=== PATIENT | female | born 1940 | race Caucasian/White ===

== ENCOUNTER → 2017-12-16 | Outpatient (CLI) | payer OTHER ==
[~2017-12-16] MED LIST: ACID REDUCER20 MG PO; ASPIR 8181 MG PO; COUMADIN 3 MG TA3 M1 PO; COUMADIN 3 MG TA3 MG PO; COUMADIN 4 MG TA4 M1; COUMADIN 4 MG TA4 M1 PO; COUMADIN 5 MG TA5 M1 PO; CRESTOR40 MG PO; ENOXAPARIN40 MG/0.1 SUBQ; HYDROCODONE-AP1 EAC6 PO; MECLIZINE HCL12.5 MG PO; METAMUCIL PACK3.4 GM PO; METFORMIN HCL500 MG PO; NEURONTIN 300300 M1 PO; NEXIUM40 MG PO; NORCO 5-325 TA1 EACH PO; OXYCODONE HCL 55 MG PO; PAXIL10 MG PO; PRAMIPEXOLE0.125 MG PO; PRILOSEC 20 MG20 MG PO; TOPICAL CREAM TOP; TRAMADOL 50 MG50 MG PO; TYLENOL325 MG PO
[2017-12-16 12:17] LABS: HEMATOCRIT 35.2 % (37.0-47.0); HEMOGLOBIN 11.3 gm/dL (12.0-15.0); MCH 27.2 pg (26.0-34.0); MCHC 32.2 g/dL (28.0-37.0); MCV 84.4 fL (80.0-100.0); MPV 7.8 fl. (7.2-11.1); RBC 4.17 mil/uL (4.20-5.00); RDW-CV 16.3 % (10.5-14.5); WBC 5.3 thou/uL (4.0-11.0)
== END ==
LOC: M.LAB 11:51
PROVIDERS: Orthopaedic Surgery
DX: M25.562 Pain in left knee (principal)

== ENCOUNTER 2018-01-29 06:28 | Inpatient (IN) | payer OTHER ==
[2018-01-26 12:19] LABS: ABSOLUTE BASOPHILS 0.1 thou/uL (0.0-0.2); ABSOLUTE EOSINOPHILS 0.2 thou/uL (0.0-0.7); ABSOLUTE LYMPHOCYTES 1.3 thou/uL (0.8-5.3); ABSOLUTE MONOCYTES 0.3 thou/uL (0.0-1.2); ABSOLUTE NEUTROPHILS 3.3 thou/uL (1.6-8.1); EOSINOPHILS 4.4 %; HEMATOCRIT 34.5 % (37.0-47.0); HEMOGLOBIN 11.4 gm/dL (12.0-15.0); LYMPHOCYTES 24.9 %; MCH 28.4 pg (26.0-34.0); MCV 86.1 fL (80.0-100.0); MONOCYTES 6.1 %; MPV 7.8 fl. (7.2-11.1); NUCLEATED RBCS 0 /100WBC; PLATELET COUNT* 280 thou/uL (150-400); POLYS 63.6 %; RBC 4.01 mil/uL (4.20-5.00); RDW-CV 17.2 % (10.5-14.5); WBC 5.3 thou/uL (4.0-11.0)
[2018-01-26 12:34] LABS: ALBUMIN 3.6 g/dL (3.4-5.0); CALCIUM 8.7 mg/dL (8.5-10.1); CREATININE 0.7 mg/dL (0.6-1.3); POTASSIUM 3.8 mmol/L (3.5-5.1); TOTAL BILIRUBIN 0.6 mg/dL (<0.1-1.0); TOTAL PROTEIN 7.3 g/dL (6.4-8.2)
[2018-01-27 02:07] LABS: GLYCOHEMOGLOBIN (HGB A1C) 5.6 % (4.8-5.6)
[~2018-01-29] VITALS: Ht 165.1 cm; Wt 63.5 kg
[2018-01-29 07:06] VITALS: BP 137/75
[2018-01-29 07:12] LABS: PROTIME 9.7 Seconds (9.20-11.50)
[2018-01-29 11:30] VITALS: BP 107/50
[2018-01-29 12:00] VITALS: BP 107/50
[2018-01-29 17:15] VITALS: BP 138/62
[2018-01-29 20:00] VITALS: BP 142/71
[2018-01-29 21:15] VITALS: BP 170/78
[2018-01-30 00:27] VITALS: BP 120/67
[2018-01-30 04:00] VITALS: BP 129/63
[2018-01-30 08:30] VITALS: BP 101/55
[2018-01-30 17:55] VITALS: BP 108/52
[2018-01-31 00:10] VITALS: BP 131/72
[2018-01-31 04:00] VITALS: BP 123/65
[2018-01-31 04:35] LABS: HEMATOCRIT 26.4 % (37.0-47.0); HEMOGLOBIN 8.9 gm/dL (12.0-15.0)
[2018-01-31 04:36] LABS: INR 1.3; PROTIME 12.2 Seconds (9.20-11.50)
[2018-01-31 16:00] VITALS: BP 113/71
[2018-01-31 20:30] VITALS: BP 124/67
[2018-02-01 03:30] VITALS: BP 106/58
[2018-02-01 03:51] LABS: INR 1.4; PROTIME 13.3 Seconds (9.20-11.50)
[2018-02-01 07:50] VITALS: BP 118/62
[2018-02-01] MEDS ORDERED: NORCO 5-325 TA1 EACH PO (11:30)
[2018-02-01 11:31] VITALS: BP 118/62
[2018-02-01] MEDS ORDERED: OXYCODONE HCL 55 MG PO (11:31)
[2018-02-01 13:36] VITALS: BP 118/50
[2018-02-01 15:30] VITALS: BP 128/49
[2018-02-01 20:00] VITALS: BP 115/52
[2018-02-02 05:00] VITALS: BP 134/60
[2018-02-02 05:20] LABS: INR 1.7; PROTIME 16.7 Seconds (9.20-11.50)
[2018-02-02 16:50] VITALS: BP 123/50
[2018-02-03 00:38] VITALS: BP 149/65
[2018-02-03 04:26] LABS: INR 2.1; PROTIME 19.9 Seconds (9.20-11.50)
[2018-02-03 04:46] VITALS: BP 108/55
[2018-02-03 08:00] VITALS: BP 149/65
--- NOTE | 2018-02-03 10:04 | OP ---
[address] [address] OPERATIVE REPORT Name: MICHAEL CORCORAN Room: [address] IN M.R.#: [id number] Admission: 01/29/18 Attend Phys: Milan Trevino Discharge: Date of : 40 Report #: [id number] THIS REPORT FOR: //name// CC: Jose Duggan DICTATED BY: Giuseppe Begum DO DATE OF SERVICE: 01/29/2018 PREOPERATIVE DIAGNOSES: Arthrofibrosis, status post right total knee arthroplasty on 07/31/2017 with history of prior manipulation under anesthesia, range of motion roughly 10 degrees to 115 degrees. POSTOPERATIVE DIAGNOSES: 1. Arthrofibrosis, status post right total knee arthroplasty on 07/31/2017 with restricted range of motion from roughly 10 degrees to 115 degrees. 2. Of note, from her frozen section pathology, there were granulomas noted by Dr. Schneider, our pathologist. There were 0 PMNs per high-power field. PROCEDURE: Right knee arthrotomy with intraoperative frozen section, significant adhesiolysis and synovectomy, polyethylene exchange, posterior capsule release, and obtained intra-articular cultures and a formal irrigation with pulsatile lavage. SURGEON: Jim Oshea DO OIL PUMP STATION OPERATOR CHIEF: Giuseppe Begum DO ANESTHESIA: General with a femoral nerve block. ESTIMATED BLOOD LOSS: 100 mL. SPECIMENS REMOVED: Multiple frozen sections intraoperatively that did not display any PMNs per high-power field, but as mentioned previously, did show some areas with granulomas as reported by Dr. Schneider, we also sent off intra-articular cultures which are pending. COMPLICATIONS: None. DRAINS: None. ANTIBIOTICS: Clindamycin 600 mg IV preoperatively. DISPOSITION: Stable to PACU [place] [address] OPERATIVE REPORT Name: MICHAEL CORCORAN Room: [address] IN [facility]#: [id number] Admission: 01/29/18 Attend Phys: Milan Trevino Discharge: Date of : 40 Report #: [id number] postoperative care. INDICATIONS FOR PROCEDURE: The patient is a pleasant 77-year-old female who had an uncomplicated right total knee arthroplasty performed back on 07/31/2017. Since that time, she has continued to have issues with achieving full range of motion. She has good overall flexion roughly at 115-20 degrees, but she is lacking nearly 10 degrees of extension. We did attempt a previous manipulation under anesthesia, which got her some improved range of motion, but she has continued to have issues getting a full extension. She was lacking nearly 10 degrees of extension. She had also continued pain, no significant swelling, but there was some warmth about the knee. There was some concern for possible periprosthetic joint infection. We attempted aspiration multiple times in clinic and were unable to get any significant fluid to send for specimen. We did do a normal lab work on her, which her white count and inflammatory markers were within normal limits. We recommended proceeding with a right knee arthrotomy, possible poly exchange, possible explant and antibiotic spacer insertion. Pending intraoperative pathology frozen sections. All risks, benefits, complications, indications, alternative treatments were discussed and the patient wished to proceed with surgery today. DESCRIPTION OF PROCEDURE: The patient was seen in preoperative holding area correct operative site, right knee was initialed. The patient was taken back to operating suite, placed in supine position on the operating table, given benefit of general anesthetic. A well-padded tourniquet was placed on right upper thigh. Right lower extremity was then prepped and draped in typical fashion. Next surgery began with a timeout, identifying the correct patient, correct procedure, correct operative site, preoperative antibiotics. Next, a standard midline anterior right knee incision was made using 10 blade scalpel directly over the previous surgical scar. Subcutaneous tissues were incised sharply with the same 10 blade scalpel down to the level of the capsule. A new 10 blade scalpel was used to perform our standard medial parapatellar arthrotomy. At this point, there was significant fibrotic scar tissue noted both around the capsule, around the patella and up into the suprapatellar pouch with hypertrophic synovium noted as well. At this point, we performed all of her cultures and took multiple tissue samples of suprapatellar synovium, to be sent for frozen section by pathologist, Dr. Schneider. Next, we performed a thorough debridement of the fibrotic scar tissue and released any adhesions we felt necessary. We placed a Steinmann pin in our patellar tendon just to prevent any sort of insertional tear. Next, we removed our 10 mm polyethylene spacer. We did take cultures from the back of our tibial tray and performed a thorough debridement of any remaining tissue in the back edge of the tibial tray. At this point, we performed a significant posterior release and removed any remaining PCL fibers in the notch. Using a small Reyes elevator, we were able to perform a significant posterior capsular release off the posterior aspect of the femur paying close attention to any surrounding neurovascular structures. We sequentially inserted first a 10 mm followed by 12 mm and then lastly followed [address] [address] OPERATIVE REPORT Name: MICHAEL CORCORAN Room: [address] IN [facility]#: [id number] Admission: 01/29/18 Attend Phys: Milan Trevino Discharge: Date of : 40 Report #: [id number] by 14 mm polyethylene spacer and with her significant posterior capsular release and some manipulation, intraoperatively we were able to get the knee to full extension with a [address]. This was held for roughly 10-15 minutes working on stretching the posterior capsule. By that time, Dr. Schneider, our pathologist had come back in and given the results of our intraoperative frozen sections, which had 0 PMNs per high-power field, but he did note interesting finding of some granulomas in her specimens for which we will need to do a significant workup including a chest x-ray and referral likely to her primary care physician for further workup regarding this finding. Nonetheless, the knee did not show any signs of gross infection. Both the femoral and tibial components appear to be well fixated as well as the patellar component appeared to be well fixated and seemed to be very well intact. At this point, then the 14 mm spacer was removed. Knee was thoroughly irrigated with pulsatile lavage. Then, we impacted our final 10 mm polyethylene spacer. Knee was taken through range of motion. She had full extension easily and had 125 degrees of flexion, felt stable to both varus and valgus stress testing with symmetric gapping as well as within mid flexion stability. Capsule was closed in a rtithy-kt-liakd fashion with a #1 Vicryl suture, followed by 2-0 Monocryl in the subcutaneous tissues in a simple inverted fashion, followed by rex on the skin. Standard dressings were applied consisting of Mepilex, 4 x 4 Sof-Rol and we actually placed a long-leg posterior OCL well-padded splint with the knee in full extension to be maintained for 2-3 days and then likely will remove thereafter and start working on range of motion again. The patient was weaned from general anesthetic, transferred in stable condition to PACU. All sponge, needle counts were correct x 2. <ELECTRONICALLY SIGNED> By: Jim Oshea DO 02/03/18 1004 1047 [id number] Oshea DO /nt
[2018-02-03 16:13] VITALS: BP 133/66
[2018-02-03 19:45] VITALS: BP 131/57
[2018-02-04 14:27] VITALS: BP 118/62
[2018-02-04 18:27] VITALS: BP 118/62
--- NOTE | 2018-02-09 15:21 | CON ---
[facility] [address] [place] [address] CONSULTATION Name: MICHAEL CORCORAN Room: [address] IN .R.#: [id number] Admission: 01/29/18 Attend Phys: Milan Trevino Discharge: 02/04/18 Date of : 40 Report #: [id number] THIS REPORT FOR: //name// CC: Jose Duggan REASON FOR CONSULTATION: Evaluation and recommendations regarding post-acute rehabilitation in a 77-year-old female admitted acutely for failed right total knee arthroplasty with poly exchange, posterior capsule release and removal of adhesions. She also has a concurrent history of lupus, diabetes, atrial fibrillation, hyperlipidemia and GERD. She was previously independent to modified independent with activities of daily living. She does have multiple DME including shower riser, cane, walker. She has cognitive deficits noted. She is also minimum to maximum assistance with occupational therapies and contact guard to minimum assistance with physical therapies. She lives at home with her who is getting ready to have heart stent placed next week and is unable to care for her. She does have 13 steps to her bedroom. She has not attempted steps during this hospital stay yet. ALLERGIES: PENICILLIN. LABORATORIES AND MEDICATIONS: Reviewed. 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 FAMILY HISTORY: Heart disease. SOCIAL HISTORY: No tobacco, alcohol or illicit drug use. REVIEW OF SYSTEMS: A 14-point review of systems is done and is negative except as mentioned in the HPI, specifically no fever, chest pain, shortness of breath, abdominal pain or distention. PHYSICAL EXAMINATION: GENERAL: Alert, oriented, in no apparent distress. VITAL SIGNS: Reviewed and are stable. HEENT: Head is atraumatic and normocephalic. Pupils are equal, round and reactive. ABDOMEN: Soft, nontender and nondistended. NEUROLOGIC: Cranial nerves 2-12 are grossly intact with no focal neuro deficits. PSYCHIATRIC: Appropriate mood and affect. SKIN: [place] [address] CONSULTATION Name: NARAYANMICHAEL VILLAFUERTE Moises Room: [address]#: [id number] Admission: 01/29/18 Attend Phys: Milan Trevino Discharge: 02/04/18 Date of : 40 Report #: [id number] ASSESSMENT: 1. Failed right total knee arthroplasty, status post DAVIDA, poly exchange and posterior capsule release. 2. Lupus. 3. GERD, diabetes, hyperlipidemia and hypothyroid. 4. Atrial fibrillation with hypercoagulable state. PLAN: 1. Recommend admission to inpatient rehabilitation to facilitate safe discharge home. 2. Continue with PT and OT. 3. Document speech language pathology with cognitive deficits. 4. We will follow while on acute side of the hospital. <ELECTRONICALLY SIGNED> By: Dilia Goldberg DO 02/09/18 1521 [id number] [id number] Goldberg DO /nt
--- NOTE | 2018-06-01 15:19 | PATH ---
[address] [address] PATHOLOGY RPT PROCEDURE Name: MICHAELA CORCORAN Room: [address] IN .R.#: [id number] Admission: 01/29/18 Date of : 40 Discharge: 02/04/18 Report #: [id number] Path Case #: [id number] [facility] Accession Number: [id number] . 01 Material submitted: . RIGHT KNEE TISSUE FOR FROZEN SECTION FOR WHITE CELLS UNDER HPF . 02 Diagnosis: Right knee tissue: - Benign skeletal muscle and fibrofatty tissues and moderate non-caseating granulomatous and chronic synovitis, with less than two neutrophils per high power field on average. See comment. LBQ/02/02/2018 . 02 Comment: No birefringent foreign material is seen in association with the granulomata and the histologic features suggest the possibility of an infectious cause or sarcoidosis. Properly controlled GMS and Kinyoun stains performed on A3 are negative although infectious causes are best excluded with cultures. (JORDYN:db; 02/02/2018) . Copy to Dr. Brenton Duggan . 02 Electronically signed: . Cecil Schneider MD, Pathologist NPI- [id number] . 01 Gross description: . Received fresh from the operating room accompanied by a label marked "Michaela Corcoran, frozen right knee" are two pieces of more to yellow to partially hemorrhagic soft tissues with aggregate greatest dimensions of 5.0 x 3[address] Oshea requests evaluation for the presence of neutrophils and possible infection. One of the segments has a smooth bansal, membranous lining. Touch preps are prepared and apparel trimmings sales representative sections are taken from both segments and submitted for frozen studies with the remainder of that tissue frozen submitted in cassette A1. The remaining tissues are submitted for formalin fixation prior to further examination. (JORDYN:db; 01/29/2018) . Received are five fragments of more-bansal rubbery soft tissue partially covered by a more-white membrane ranging from 1.7 up to 2.4 cm in greatest dimension and measuring 3.0 x 2.5 x 1.5 cm in aggregate. Additional sections are submitted in A2-A3. (SWS; 01/29/2018) . Frozen Section Diagnosis With Touch Prep: [place] [address] PATHOLOGY RPT PROCEDURE Name: MICHAELA CORCORAN Room: [address] IN [facility].#: [id number] Admission: 01/29/18 Date of : 40 Discharge: 02/04/18 Report #: [id number] Path Case #: [id number] (Gunnar Schneider M.D.) . FSA1/TPA1. Right knee: - Noncaseating granulomatous synovitis with less than 5 neutrophils per high power field on average. Possible sarcoidosis. Recommend cultures to include fungus and mycobacteria/acid fast organisms. . Results are relayed directly to Dr. Oshea in the operating room and a note entered into the medical record. . Frozen section and touch prep performed at [facility], [address], [place] [address]. [facility] . 02 CPT . 293614, 185935, 740326, 600623, [id number] Specimen Comment: A duplicate report has been generated due to demographic updates. Performed at: 01 [facility] [id number] [facility] [address], [place], [place] [id number] MD Bc Skinner MD Phone: [phone] Performed at: 02 [facility] [address], [place], [place] [id number] MD Cecil Schneider MD Phone: [phone]
== END 2018-02-04 16:00 | disposition home health service (06) | DRG 488 ==
LOC: M.TBA 06:28 → M.SUR 07:37 → EDSTATUS 07:38 → M.PRE 08:00 → M.ORTHSURG 11:45 → M.PRE 12:24 → M.ORTHSURG 02-04 16:00
PROVIDERS: Internal Medicine; Orthopaedic Surgery; ADMIT Internal Medicine
PROC: 0SBC0ZZ Excision of Right Knee Joint, Open Approach (ICD-10-PCS; principal; 2018-01-29)
DX: T84.092A Other mechanical complication of internal right knee prosthesis, initial encounter (principal); D68.59 Other primary thrombophilia; M19.90 Unspecified osteoarthritis, unspecified site; E11.9 Type 2 diabetes mellitus without complications; E78.5 Hyperlipidemia, unspecified; I48.2 Chronic atrial fibrillation; Z96.651 Presence of right artificial knee joint; K21.9 Gastro-esophageal reflux disease without esophagitis; M32.9 Systemic lupus erythematosus, unspecified; M24.661 Ankylosis, right knee; E03.9 Hypothyroidism, unspecified; Z82.49 Family history of ischemic heart disease and other diseases of the circulatory system; Z79.82 Long term (current) use of aspirin; Z79.899 Other long term (current) drug therapy; Z88.0 Allergy status to penicillin; Z90.49 Acquired absence of other specified parts of digestive tract; Z86.73 Personal history of transient ischemic attack (TIA), and cerebral infarction without residual deficits; Z98.42 Cataract extraction status, left eye; Z98.41 Cataract extraction status, right eye

== ENCOUNTER → 2018-06-04 | Outpatient (CLI) | payer OTHER ==
[2018-06-04 12:50] LABS: BF RBC 265121 /mm3; CLARITY CLOUDY; COLOR RED; TOTAL CELL COUNT 383 /mm3; TOTAL VOLUME 5 ml
[2018-06-04 14:57] LABS: BF EOSINOPHILS 10 %; BF LYMPHOCYTES 51 %; BF MONOCYTES 2 %; BF POLYS 37 %
[2018-06-05 09:07] LABS: BODY FLUID PROTEIN 2.4 g/dL (())
[2018-06-05 18:24] LABS: SOURCE ASCITES
[2018-06-06 11:00] LABS: SOURCE R KNEE SYNOVIAL
--- NOTE | 2018-06-07 17:08 | PATH ---
[address] [address] PATHOLOGY RPT PROCEDURE Name: MICHAEL CORCORAN Room: [facility] [place]#: [id number] Admission: 06/04/18 Date of : 40 Discharge: Report #: [id number] Path Case #: [id number] Note [facility] Accession Number: [id number] TESTS RESULT FLAG UNITS REF RANGE LAB Clinician Provided Cytology Information No. of containers..01 Other (Miscellaneous) Source: R KNEE SYNOVIAL FLUI DIAGNOSIS: R KNEE SYNOVIAL FLUI NEGATIVE FOR MALIGNANT CELLS. ABUNDANT BLOOD WITH FEW MONONUCLEAR CELLS. PROTEINACEOUS MATERIAL IS PRESENT. Signed out by: 02 Cecil Schneider MD, Pathologist NPI- [id number] Performed by: Jose Padilla, Leveling Machine Operator ([facility]) Gross description: 01 2.5ML, RED, CLOUDY /LCS FLAG LEGEND: L-Low Normal,H-High Normal,LL-Alert Low,HH-Alert High <-Panic Low,>-Panic High,A-Abnormal,AA-Critical Abnormal Performed at: [address] [place] [address] Bc Skinner MD, [address] [place] [address] [address] [facility], [place] [address] Cecil Schneider MD, Performed at: [address], [place], [place] [id number] MD Bc Skinner MD Phone: [phone]
== END ==
LOC: M.LAB 11:27
PROVIDERS: Orthopaedic Surgery
DX: M25.461 Effusion, right knee (principal)

== ENCOUNTER 2018-11-12 12:29 | Inpatient (IN) | payer OTHER ==
[~2018-11-12] VITALS: Ht 165.1 cm; Wt 59.9 kg
--- NOTE | ~2018-11-12 | H ---
[address] [address] HISTORY AND PHYSICAL Name: MICHAEL CORCORAN Room: [address]#: [id number] Admission: 11/12/18 Attend Phys: Kurt Nash MD Discharge: 11/12/18 Date of : 40 Report #: [id number] THIS REPORT FOR: //name// Patient was here less than 24 hour please refer to the Emergency room summary note. Patient left AMA. By: 1122Medical Records Staff FINN /LEONARDO
--- NOTE | ~2018-11-12 | CON ---
[address] [address] CONSULTATION Name: JOE CORCORANLOTEVA De Leon Room: [address] IN [place]irela.#: [id number] Admission: 11/12/18 Attend Phys: Kurt Nash MD Discharge: Date of : 40 Report #: [id number] THIS REPORT FOR: //name// CC: Jose Hopkins DATE OF SERVICE: 11/12/2018 TYPE OF REPORT: Cardiology consultation. HISTORY OF PRESENT ILLNESS: The patient is a 77-year-old white female who I was asked to see in the Emergency Room today after she complained of epigastric pain. The patient has a long history of paroxysmal atrial fibrillation. She has been followed by my partner, Dr. Hopkins. She apparently has never been cardioverted. She has been chronically anticoagulated. Previous heart catheterization years ago at [facility] showed no significant coronary artery disease and no intervention was performed. She states that recently she has had epigastric pain. It is a constant pain. It radiates around to her back. It is not related to meals or exertion. She has had no appetite. Denies any shortness of breath. She has occasional palpitations but no syncope. Because the epigastric pain, she actually went to [facility] a week ago. She was admitted there for 6 days. She underwent extensive evaluation including nuclear stress test, EGD and CAT scan. The cause of her chest pain was never elucidated. She was just discharged yesterday. She called my office this morning and complained of the epigastric pain. She was told to go to the hospital for further evaluation and treatment. She has had no vomiting or diarrhea. PAST MEDICAL HISTORY: Significant for cholecystectomy, hysterectomy, knee surgery and diabetes. MEDICATIONS: Include metformin, warfarin and Lipitor. ALLERGIES: She has an allergy to PENICILLIN. FAMILY HISTORY: Her mother had bypass surgery. SOCIAL HISTORY: She is . She lives with her in [place]. She quit smoking years ago. No alcohol abuse. REVIEW OF SYSTEMS: She apparently had a stroke years ago with some speech difficulties. She has no history of asthma. No history of GI bleeding. No history of kidney disease, cancer, psychiatric illness or [place] [address] CONSULTATION Name: MICHAEL CORCORAN Room: [address]#: [id number] Admission: 11/12/18 Attend Phys: Kurt Nash MD Discharge: Date of : 40 Report #: [id number] PHYSICAL EXAMINATION: GENERAL: Revealed an elderly female who appeared in no acute distress. VITAL SIGNS: Showed blood pressure 120/80, pulse is 90 and she is afebrile. HEENT: She was anicteric. Conjunctivae pink. Mucous members are moist. NECK: Veins do not appear distended. No carotid bruits. Neck supple. CHEST: Clear to auscultation. CARDIAC: Regular rate and rhythm without rub. ABDOMEN: Soft. EXTREMITIES: Had no edema. SKIN: Warm and dry. NEUROLOGICAL: Nonfocal. LYMPHATIC: No adenopathy. MUSCULOSKELETAL: No joint effusion. RADIOLOGICAL DATA: Her ECG had a significant amount of artifact but had no significant ST or T-wave changes. Her workup in the Emergency Room today, she had portable chest x-ray that showed normal heart size, some atelectasis, otherwise unremarkable. LABORATORY DATA: Sodium 139, potassium 3.7 and creatinine 0.9. Troponin 0.06. Her white blood cell count 5.1 and hemoglobin 11.3. IMPRESSION AND RECOMMENDATIONS: 1. Epigastric pain. Doubt cardiac. I would attempt to obtain all the records from [facility] where she was admitted a week ago and hospitalized for 6 days with an extensive evaluation. 2. History of atrial fibrillation. The patient has been chronically anticoagulated. Her INR today, however, is only 1.2. 3. Diabetes. 4. Hyperlipidemia. The patient is on a statin drug. 5. Previous stroke. The patient has been chronically anticoagulated. By: 1510 [id number] Sabillon MD, FACC /nt
[2018-11-12 12:40] VITALS: BP 140/80
[2018-11-12] MEDS ORDERED: LIPITOR80 MG PO (12:56)
[2018-11-12] MEDS ORDERED: VITAMIN D2000 UNIT PO (12:56)
[2018-11-12] MEDS ORDERED: ENOXAPARIN100 MG/11 SUBQ (12:56)
[2018-11-12] MEDS ORDERED: MIRAPEX 0.250.25 M1 PO (12:57)
[2018-11-12] MEDS ORDERED: SYNTHROID100 MC1 PO (12:57)
[2018-11-12 13:08] LABS: ABSOLUTE BASOPHILS 0.1 thou/uL (0.0-0.2); ABSOLUTE EOSINOPHILS 0.2 thou/uL (0.0-0.7); ABSOLUTE MONOCYTES 0.5 thou/uL (0.0-1.2); ABSOLUTE NEUTROPHILS 3.2 thou/uL (1.6-8.1); BASOPHILS 1.1 %; EOSINOPHILS 3.9 %; HEMATOCRIT 33.9 % (37.0-47.0); HEMOGLOBIN 11.3 gm/dL (12.0-15.0); LYMPHOCYTES 20.6 %; MCH 28.6 pg (26.0-34.0); MCHC 33.2 g/dL (28.0-37.0); MCV 86.1 fL (80.0-100.0); MONOCYTES 10.4 %; MPV 7.5 fl. (7.2-11.1); NUCLEATED RBCS 0 /100WBC; PLATELET COUNT* 290 thou/uL (150-400); RBC 3.94 mil/uL (4.20-5.00); RDW-CV 16.2 % (10.5-14.5); WBC 5.1 thou/uL (4.0-11.0)
[2018-11-12 13:14] LABS: APTT 32.7 Seconds (25.0-31.3); INR 1.2; PROTIME 12.7 Seconds (9.20-11.50)
[2018-11-12 13:23] LABS: ANION GAP 9 mmol/L (7-16); BUN 15 mg/dL (7-18); CALCIUM 9.1 mg/dL (8.5-10.1); CHLORIDE 101 mmol/L (98-107); CO2 29 mmol/L (21-32); CREATININE 0.9 mg/dL (0.6-1.3); GLUCOSE 134 mg/dL (70-99); POTASSIUM 3.7 mmol/L (3.5-5.1); SODIUM 139 mmol/L (136-145); TROPONIN-I LEVEL <0.06 ng/mL (<0.06)
[2018-11-12 13:24] LABS: ALBUMIN 3.4 g/dL (3.4-5.0); ALKALINE PHOSPHATASE 82 U/L (46-116); LIPASE 113 U/L (73-393); MAGNESIUM 1.8 mg/dL (1.8-2.4); NT-PRO BRAIN NAT PEPTIDE 123 pg/mL (<300); SGOT 33 U/L (15-37); SGPT 25 U/L (30-65); TOTAL BILIRUBIN 0.4 mg/dL (<0.1-1.0); TOTAL PROTEIN 7.4 g/dL (6.4-8.2)
--- NOTE | 2018-11-12 15:47 | EKG ---
[place] [address] ELECTROCARDIOGRAM REPORT Name: MICHAEL CORCORAN Room: [place] [address] ADM IN [facility].#: [id number] Admission: 11/12/18 Attend Phys: Kurt Nash MD Discharge: Date of : 40 Report #: [id number] THIS REPORT FOR: //name// [facility] ED Test Date: 2018-11-12 Test Time: 13:17:21 Pat Name: MICHAEL CORCORAN Department: Room: [facility] Gender: F Case Managers: MADDY : 1940 Requested By: Killian Mares Order Number: [id number] MD: Daniel Sabillon Measurements Intervals [place] Rate: 92 P: 47 MD: 142 QRS: 37 QRSD: 82 T: 38 QT: 331 QTc: 410 Interpretive Statements Sinus rhythm Artifact in lead(s) I,II,III,aVR,aVL,aVF,V1,V2,V3,V4 and baseline wander in lead (s) V1 Compared to ECG 07/23/2017 09:14:30 No significant changes Electronically Signed On 11-12-2018 15:47:19 MIXING TUMBLER OPERATOR by Daniel Sabillon [email or web address] <ELECTRONICALLY SIGNED> By: Daniel Sabillon MD, FACC 11/12/18 1547 1317 1317 Daniel Sabillon MD, [facility] /EPI
[2018-11-12 17:44] VITALS: BP 133/70
--- NOTE | 2018-11-12 17:44 | NUR ---
PT REPORTS SHE DOES NOT WANT TO GO HOME BECAUSE SHE WAS JUST ADMITTED AT [facility] FOR 6 DAYS. PARTIAL AMA FORM SIGNED.
== END 2018-11-12 17:45 | disposition left against medical advice (07) | DRG 392 ==
LOC: M.ERS 12:29 → M.TBA-ER 14:09
PROVIDERS: Emergency Medicine Emergency Medical Services; ADMIT Internal Medicine
DX: R10.13 Epigastric pain (principal); E11.9 Type 2 diabetes mellitus without complications; I10 Essential (primary) hypertension; E78.5 Hyperlipidemia, unspecified; M19.90 Unspecified osteoarthritis, unspecified site; K21.9 Gastro-esophageal reflux disease without esophagitis; Z53.21 Procedure and treatment not carried out due to patient leaving prior to being seen by health care provider; I48.0 Paroxysmal atrial fibrillation; Z90.49 Acquired absence of other specified parts of digestive tract; Z98.42 Cataract extraction status, left eye; Z98.41 Cataract extraction status, right eye; Z88.0 Allergy status to penicillin; Z79.01 Long term (current) use of anticoagulants; Z90.710 Acquired absence of both cervix and uterus; Z79.899 Other long term (current) drug therapy

== ENCOUNTER 2020-03-12 19:26 | Observation (INO) | payer OTHER ==
[~2020-03-12] VITALS: Ht 165.1 cm; Wt 64.8 kg
--- NOTE | ~2020-03-12 | CON ---
[address] [address] CONSULTATION Name: MICHAEL CORCORAN Room: [address] Mar[place] Rowland#: [id number] Admission: 03/12/20 Attend Phys: Angela Walker Discharge: 03/14/20 Date of : 40 Report #: [id number] THIS REPORT FOR: //name// cc: Jose Esparza Aaron DO ~ THIS REPORT FOR: //name// CC: Jose Velasquez Tilarenita DATE OF SERVICE: 03/14/2020 HISTORY OF PRESENT ILLNESS: This is a 79-year-old female patient who was discussed with nurses multiple times. She was evaluated by me for acute onset of headache. Because of that, the patient underwent a CT scan of the head, which showed no acute process. Then, she had an MRI of the brain and MRA of the [place] of [place]. That also showed no acute process. She says she usually follows up with Dr. Arredondo for her neurological problem. She said she had some mini strokes in the past, but history is not very clear. REVIEW OF SYSTEMS: Positive for some epigastric pain. She has been tired. She does have a history of anxiety. She says she has a question of restless leg syndrome. She is on chronic anticoagulation. She has seen multiple consultants including Cardiology. She has a history of paroxysmal atrial fibrillation. Headache was mostly resolved when I saw this patient. I did not see any imaging of the carotid vessels, but she has no symptoms referable to that. She said Dr. Arredondo has done all those testing. That was a relevant 14-point review of systems. PAST MEDICAL HISTORY: Positive for "mini stroke." FAMILY HISTORY: Unremarkable. SOCIAL HISTORY: Also unremarkable. She does not drink alcohol. PHYSICAL EXAMINATION: Indicates she is alert. She is responsive. She appeared anxious. Cranial nerve examination and neuromuscular examination was mostly unremarkable. Blood pressure is 144/65, respirations 16, pulse is 97, temperature is 97.4. LABORATORY DATA: White count is 5.6. Imaging study was reviewed and is summarized as above. IMPRESSION: This patient complained of a headache, but the workup was unremarkable. I do [place] [address] CONSULTATION Name: NARAYANMICHAEL VILLAFUERTE Moises Room: [address] Maricel Rowland#: [id number] Admission: 03/12/20 Attend Phys: Angela lee [facility] Discharge: 03/14/20 Date of : 40 Report #: [id number] perspective at the moment. She probably have the imaging studies of the carotid, but she can check with Dr. Arredondo. She is already on anticoagulation and there are no symptoms referable to any of the carotid. I discussed all of these with the patient and she does indicate that she will talk to Dr. Ahmed about the further management. Thank you very much for this referral. About 50 minutes of time was spent taking care of this patient and majority of that time was spent counseling and coordinating. By: 1818 [id number] Masters MD /nt
[~2020-03-12 19:26] MED LIST changes: +ENOXAPARIN100 MG/11 SUBQ; +LIPITOR80 MG PO; +MIRAPEX 0.250.25 M1 PO; +SYNTHROID100 MC1 PO; +VITAMIN D2000 UNIT PO
[2020-03-12 19:36] VITALS: BP 148/80
[2020-03-12 19:53] LABS: ABSOLUTE BASOPHILS 0.1 thou/uL (0.0-0.2); ABSOLUTE EOSINOPHILS 0.4 thou/uL (0.0-0.7); ABSOLUTE LYMPHOCYTES 1.8 thou/uL (0.8-5.3); ABSOLUTE MONOCYTES 0.7 thou/uL (0.0-1.2); ABSOLUTE NEUTROPHILS 3.8 thou/uL (1.6-8.1); BASOPHILS 1.2 %; EOSINOPHILS 6.5 %; HEMATOCRIT 34.7 % (37.0-47.0); HEMOGLOBIN 11.6 gm/dL (12.0-15.0); LYMPHOCYTES 26.4 %; MCH 29.3 pg (26.0-34.0); MCHC 33.4 g/dL (28.0-37.0); MCV 87.6 fL (80.0-100.0); MONOCYTES 10.5 %; MPV 8.5 fl. (7.2-11.1); NUCLEATED RBCS 0 /100WBC; PLATELET COUNT* 252 thou/uL (150-400); POLYS 55.4 %; RBC 3.96 mil/uL (4.20-5.00); RDW-CV 15.8 % (10.5-14.5); WBC 6.9 thou/uL (4.0-11.0)
[2020-03-12 20:07] LABS: CALCIUM 8.5 mg/dL (8.5-10.1); CREATININE 0.7 mg/dL (0.6-1.3)
[2020-03-12 20:09] LABS: APTT 33.6 Seconds (25.0-31.3); INR 1.9
[2020-03-12] MEDS ORDERED: REQUIP 0.25 M0.25 M1 (20:11)
[2020-03-12] MEDS ORDERED: MACROBID 100 M100 MG (20:11)
[2020-03-12] MEDS ORDERED: COUMADIN6 MG PO (20:12)
[2020-03-12] MEDS ORDERED: LEVO-T50 MCG PO (20:13)
[2020-03-12 20:20] LABS: ALBUMIN 3.6 g/dL (3.4-5.0); TOTAL BILIRUBIN 0.3 mg/dL (<0.1-1.0); TOTAL PROTEIN 7.5 g/dL (6.4-8.2)
[2020-03-12 22:30] VITALS: BP 153/78
[2020-03-12 23:15] VITALS: BP 156/85
[2020-03-13 03:39] VITALS: BP 142/77
[2020-03-13 05:40] LABS: CHOLESTEROL 143 mg/dL (<200); HDL CHOLESTEROL 71 mg/dL (>40); LDL CHOLESTEROL 61 mg/dL (<100); TRIGLYCERIDE 57 mg/dL (<150); VLDL 11 mg/dL (<40)
[2020-03-13 05:42] LABS: SERUM ASSESSMENT Clear
[2020-03-13 08:00] VITALS: BP 138/78
--- NOTE | 2020-03-13 09:07 | EKG ---
[place] [address] ELECTROCARDIOGRAM REPORT Name: MICHAEL CORCORAN Room: [address] M.#: [id number] Admission: 03/12/20 Attend Phys: Angela lee Sa Discharge: Date of : 40 Date of Service: 03/12/201930 Report #: [id number] THIS REPORT FOR: //name// [facility] ED Test Date: 2020-03-12 Test Time: 19:31:11 Pat Name: MICHAEL CORCORAN Department: Room: [facility] Gender: F Mobile Homes Repairer: [place] : 1940 Requested By: Angelica Chong Order Number: [id number] MD: Arya Simpson Measurements Intervals [place] Rate: 89 P: 26 CO: 132 QRS: 38 QRSD: 89 T: 30 QT: 344 QTc: 419 Interpretive Statements Sinus rhythm Compared to ECG 11/12/2018 13:17:21 No significant changes Electronically Signed On 03-13-2020 9:06:59 CDT by Arya Simpson [email or web address] <ELECTRONICALLY SIGNED> By: Arya Simpson MD, FACC 03/13/2006 30 30 Arya Simpson MD, FAC /EPI
[2020-03-13 12:22] VITALS: BP 128/72
--- NOTE | 2020-03-13 12:26 | 2DMMODE ---
[place] [address] 2 D/M-MODE ECHOCARDIOGRAM Name: MICHAEL CORCORAN Room: [address] Maricel Rowland#: [id number] Admission: 03/12/20 Attend Phys: Angela lee Sa Discharge: Date of : 40 Date of Service: 03/13/20 1225 Report #: [id number] THIS REPORT FOR: cc: Jose Esparza,Jose Bronson,Arya Mazariegos MD [facility] ~ APPROVED REPORT Study performed: 03/13/2020 09:19:13 EXAM: Comprehensive 2D, Doppler, and color-flow Echocardiogram Patient Location: In-Patient BSA: 1.71 HR: 71 bpm BP: 142/77 mmHg Other Information Study Quality: Fair Indications Chest Pain 2D Dimensions IVSd: 13.25 (7-11mm) LVOT Diam: 17.93 (18-24mm) LVDd: 35.08 mm PWd: 13.58 (7-11mm) Ascending Ao: 26.02 (22-36mm) LVDs: 28.09 (25-40mm) Aortic Root: 36.86 mm Volumes Left Atrial Volume (Systole) LA ESV Index: 21.10 mL/m2 Aortic Valve AoV Peak Andres.: 0.87 m/s AO Peak Gr.: 3.02 mmHg LVOT Max P.08 mmHg AO Mean Gr.: 1.92 mmHg LVOT Mean P.46 mmHg LVOT Max V: 0.88 m/s AO V2 VTI: 22.75 cm LVOT Mean V: 0.55 m/s MARIA TERESA (VTI): 2.64 cm2 LVOT V1 VTI: 23.82 cm Mitral Valve E/A Ratio: 0.53 [place] [address] 2 D/M-MODE ECHOCARDIOGRAM Name: MICHAEL CORCORAN [address]: [address]#: [id number] Admission: 03/12/20 Attend Phys: Angela lee Sa Discharge: Date of : 40 Date of Service: 03/13/20 1225 Report #: [id number] MV Decel. Time: 263.14 ms MV E Max Andres.: 0.35 m/s MV PHT: 76.31 ms MVA (PHT): 2.88 cm2 TDI E/Lateral E': 5.83 E/Medial E': 4.38 Medial E' Andres.: 0.08 m/s Lateral E' Andres.: 0.06 m/s Pulmonary Valve PV Peak Andres.: 0.80 m/s PV Peak Gr.: 2.56 mmHg Tricuspid Valve RAP Estimate: 5.00 mmHg TR Peak Gr.: 18.09 mmHg RVSP: 23.09 mmHg PA Pressure: 23.09 mmHg Left Ventricle The left ventricle is normal size. There is normal LV segmental wall motion. Mild concentric left ventricular hypertrophy. Left ventricular systolic function is normal. LVEF is >70%. Grade I - abnormal relaxation pattern. Right Ventricle The right ventricle is normal size. The right ventricular systolic function is normal. Atria The left atrium size is normal. The right atrium size is normal. Aortic Valve The aortic valve is normal in structure. No aortic regurgitation is present. There is no aortic valvular stenosis. Mitral Valve The mitral valve is normal in structure. Trace mitral regurgitation. No evidence of mitral valve stenosis. Tricuspid Valve The tricuspid valve is normal in structure. Trace tricuspid regurgitation. Pulmonic Valve The pulmonary valve is normal in structure. There [place] [address] 2 D/M-MODE ECHOCARDIOGRAM Name: MICHAEL CORCORAN Room: [address] [id number] Admission: 03/12/20 Attend Phys: Angela lee Sa Discharge: Date of : 40 Date of Service: 03/13/20 1225 Report #: [id number] valvular regurgitation. Great Vessels The aortic root is normal in size. IVC is normal in size and collapses >50% with inspiration. Pericardium There is no pericardial effusion. <Conclusion> The left ventricle is normal size. Mild concentric left ventricular hypertrophy. Left ventricular systolic function is normal. LVEF is >70%. Grade I - abnormal relaxation pattern. Trace mitral regurgitation. Trace tricuspid regurgitation. IVC is normal in size and collapses >50% with inspiration. <ELECTRONICALLY SIGNED> By: Arya Simpson MD, FACC 03/13/20 1225 1225 1225 Arya Simpson MD, FACC /INF
[2020-03-13 16:29] VITALS: BP 130/70
[2020-03-13 20:10] VITALS: BP 137/74
[2020-03-14] VITALS: BP 145/60
[2020-03-14 02:06] LABS: GLYCOHEMOGLOBIN (HGB A1C) 6.1 % (4.8-5.6)
[2020-03-14 03:43] VITALS: BP 137/75
[2020-03-14 06:11] LABS: PROTIME 19.6 Seconds (9.20-11.50)
[2020-03-14 08:00] VITALS: BP 152/72
[2020-03-14 10:31] LABS: HEMATOCRIT 36.6 % (37.0-47.0); HEMOGLOBIN 12.1 gm/dL (12.0-15.0); MCH 29.1 pg (26.0-34.0); MCV 88.2 fL (80.0-100.0); MPV 8.5 fl. (7.2-11.1); RBC 4.15 mil/uL (4.20-5.00); RDW-CV 15.6 % (10.5-14.5); WBC 5.6 thou/uL (4.0-11.0)
[2020-03-14 10:38] LABS: CALCIUM 8.4 mg/dL (8.5-10.1); CREATININE 0.7 mg/dL (0.6-1.3); POTASSIUM 4.2 mmol/L (3.5-5.1)
[2020-03-14 10:40] LABS: APTT 35.3 Seconds (25.0-31.3); INR 2.1; PROTIME 20.9 Seconds (9.20-11.50)
[2020-03-14 10:43] LABS: ALBUMIN 3.4 g/dL (3.4-5.0); TOTAL BILIRUBIN 0.5 mg/dL (<0.1-1.0)
[2020-03-14 12:30] VITALS: BP 144/65
--- NOTE | 2020-03-14 12:59 | CARDNUC ---
[place] [address] CARDIAC NUCLEAR IMAGING REPORT Name: MICHAEL CORCORAN Room: [address] Janett#: [id number] Admission: 03/12/20 Attend Phys: Angela lee Sa Discharge: Date of : 40 Date of Service: 03/14/20 1258 Report #: [id number] THIS REPORT FOR: cc: Jose Esparza,Jose Bronson,Arya Mazariegos MD [facility] ~ APPROVED REPORT Study performed: 03/14/2020 11:51:46 Indication: Chest pain, Dyspnea, nausea, weakness, diaphoresis, palpitations, chills. Patient Location: In-Patient Room #: [facility] Stress Tech: Jennifer García Stress Nurse: Kathia Page RN Ht: 5 ft 5 in Wt: 142 lbs BSA: 1.71 m2 BMI: 23.62 Medical History Medical History: Angina, Atrial Fibrillation, CAD catherization, nausea, weakness, diaphoresis, chills, CVA, palpitations HLD, DM II, dyspnea, former smoker. Medications: Atorvastatin, ASA 81 Mg, Metformin, Coumadin, Nitrostat. Allergies: [facility] Cardiac Risk Factors: Age, DM, FHX of CAD, Hyperlipidemia, SOB, Past Smoker, palpitations. Previous Cardiac Procedures: Catherization Pretest Chest Pain Characteristics: No chest pain Exercise History: Indeterminate Physical Disabilities: left sided weakness s/p CVA, PAFib, Total Knee 2017. Meds Held (24 hrs): NTG. Resting Data Rest SPECT myocardial perfusion imaging was performed in supine position 30 minutes following the intravenous injection of 10.5 mCi of Tc-99m Sestamibi. Time of rest injection: 1300 Date: 03/13/2020 The images were gated to evaluate regional wall motion and calculate left ventricular ejection fraction. Administration Route: [place] [address] CARDIAC NUCLEAR IMAGING REPORT Name: NARAYANMICHAEL VILLAFUERTE Moises [address]: [address]#: [id number] Admission: 03/12/20 Attend Phys: Angela lee Sa Discharge: Date of : 40 Date of Service: 03/14/20 1258 Report #: [id number] Administration Site: Left AC Pharmacologic Stress Pharmacologic stress test was performed by injecting Regadenoson 0.4 mg IV push over 10-15 seconds immediately followed by the intravenous injection of 27.5 mCi of Tc-99m Sestamibi. Time of stress injection: 11:40 Date: 03/14/2020 Administration Route: IV Administration Site: Left AC Heart Rate at time of stress injection: 130 bpm. Gated Stress SPECT was performed 40 minutes after stress injection. The images were gated to evaluate regional wall motion and calculate left ventricular ejection fraction. Prone imaging was performed. Stress Test Details Stress Test: Pharmacologic stress testing performed using 0.4 mg of regadenoson per 5 mL given IV over 10 seconds. Reason for pharmacologic stress test: left sided weakness s/p CVA, PAFib, Total Knee 2017.. HR Max Heart Rate (APMHR): 141 bpm Resting HR: 77 bpm Target HR (85% APMHR): 119 bpm Max HR Achieved: 130 bpm % of APMHR: 92 Recovery HR: 93 bpm BP Resting BP: 182/85 mmHg Max BP: 173/83 mmHg Recovery BP: 153/82 mmHg ECG Resting ECG: Sinus Rhythm Stress ECG: Sinus Tachycardia ST Change: Horizontal ST depression Maximum ST Deviation: 1 mm Arrhythmia: APC's Recovery ECG: Sinus Rhythm Recovery ST Change: , Horizontal ST depression Recovery ST Deviation: 1 mm Recovery Arrhythmia: APC Clinical Reason for Termination: Completed protocol Stress Symptoms: Headache, Fullness in head, [place] [address] CARDIAC NUCLEAR IMAGING REPORT Name: NARAYANMICHAEL VILLAFUERTE Moises Room: [address] MChocoRChoco#: [id number] Admission: 03/12/20 Attend Phys: Angela lee Sa Discharge: Date of : 40 Date of Service: 03/14/20 1258 Report #: [id number] Exercise duration: 00 min 00 sec Exercise capacity: 1.00 METs The patient tolerated Lexiscan infusion without significant cardiac symptoms. Nurse Comments A 79 year old female inpatient presented for a sitting Lexiscan r/t chest pain, dyspnea, nausea, weakness, diaphoresis, chills, palpitations. Test well tolerated. Recovery unremarkable with PO caffeine. Patient was escorted by staff via wheelchair to Nuclear Medicine for imaging. Patient was stable and stated she felt better with a mild headache at that time. Patient did voice a headache upon arrival prior to stress test. Stress ECG Conclusion The baseline twelve-lead EKG shows sinus rhythm without significant ST segment or T wave abnormality. EKGs obtained during and post walking Lexiscan protocol shows [address] segment depression in the anterolateral and inferior leads that persisted into recovery. There were premature atrial complexes during stress and in recovery. Study Quality Study: Good Artifact: Mild Apical thinning Study Data At rest, the left ventricular ejection fraction was 58%.. Post stress, the left ventricular ejection was 66%.. TID = 0.79. Perfusion Perfusion studies obtained in the supine position at rest and post stress show a focal defect of the apex that resolves completely with post-rest prone imaging suggesting apical thinning artifact. There were no significant reversible defects identified. Wall Motion Normal left ventricular wall motion. Nuclear Conclusion ECG Findings: non-diagnostic Clinical Findings: negative for ischemia Nuclear Findings: negative for ischemia Exercise Capacity: not assessed Left Ventricular Function: [place] [address] CARDIAC NUCLEAR IMAGING REPORT Name: MICHAEL CORCORAN Room: [address] Maricel Rowland#: [id number] Admission: 03/12/20 Attend Phys: Angela lee Sa Discharge: Date of : 40 Date of Service: 03/14/20 1258 Report #: [id number] Risk Study: low Perfusion study show no defect to suggest infarct or ischemia. Left ventricular systolic function is normal on gated studies. This is a low risk study. <Conclusion> The baseline twelve-lead EKG shows sinus rhythm without significant ST segment or T wave abnormality. EKGs obtained during and post walking Lexiscan protocol shows [address] segment depression in the anterolateral and inferior leads that persisted into recovery. There were premature atrial complexes during stress and in recovery. <ELECTRONICALLY SIGNED> By: Arya Simpson MD, FACC 03/14/20 1258 1258 1258 Arya Simpson MD, FACC /INF
[2020-03-14 15:47] VITALS: BP 144/65
== END 2020-03-14 19:00 | disposition home or self-care (01) ==
LOC: M.ERS 19:26 → M.2W 21:59 → M.TBA-ER 21:59 → M.2W 22:46
PROVIDERS: Internal Medicine; Personal Emergency Response Attendant; ADMIT Family Medicine; ATTEND Family Medicine
DX: R53.1 Weakness (principal); R53.83 Other fatigue; R07.89 Other chest pain; R06.02 Shortness of breath; K21.9 Gastro-esophageal reflux disease without esophagitis; I48.20 Chronic atrial fibrillation, unspecified; E78.5 Hyperlipidemia, unspecified; E11.9 Type 2 diabetes mellitus without complications; E07.9 Disorder of thyroid, unspecified; H26.8 Other specified cataract; M32.9 Systemic lupus erythematosus, unspecified; Z86.73 Personal history of transient ischemic attack (TIA), and cerebral infarction without residual deficits; R10.13 Epigastric pain; M19.90 Unspecified osteoarthritis, unspecified site; Z87.891 Personal history of nicotine dependence; Z90.49 Acquired absence of other specified parts of digestive tract

== ENCOUNTER 2020-12-27 16:04 | Observation (INO) | payer OTHER ==
[~2020-12-27] VITALS: Ht 165.1 cm; Wt 68.5 kg
[~2020-12-27 16:04] MED LIST changes: -COUMADIN 5 MG TA5 M1 PO; +JANTOVEN5 MG PO; +LEVO-T50 MCG PO; +MACROBID 100 M100 MG; +REQUIP 0.25 M0.25 M1; +WARFARIN SODIUM4 MG PO
[2020-12-27 16:05] VITALS: BP 151/70
[2020-12-27 16:34] LABS: ABSOLUTE BASOPHILS 0.1 thou/uL (0.0-0.2); ABSOLUTE EOSINOPHILS 0.2 thou/uL (0.0-0.7); ABSOLUTE LYMPHOCYTES 1.4 thou/uL (0.8-5.3); ABSOLUTE MONOCYTES 0.3 thou/uL (0.0-1.2); ABSOLUTE NEUTROPHILS 3.5 thou/uL (1.6-8.1); EOSINOPHILS 3.5 %; HEMATOCRIT 34.4 % (37.0-47.0); HEMOGLOBIN 11.2 gm/dL (12.0-15.0); LYMPHOCYTES 25.4 %; MCH 29.3 pg (26.0-34.0); MCHC 32.5 g/dL (28.0-37.0); MCV 90.2 fL (80.0-100.0); MONOCYTES 6.4 %; MPV 7.4 fl. (7.2-11.1); NUCLEATED RBCS 0 /100WBC; PLATELET COUNT* 251 thou/uL (150-400); POLYS 63.7 %; RBC 3.81 mil/uL (4.20-5.00); RDW-CV 14.4 % (10.5-14.5); WBC 5.5 thou/uL (4.0-11.0)
[2020-12-27 16:44] LABS: CALCIUM 8.3 mg/dL (8.5-10.1); CREATININE 0.8 mg/dL (0.6-1.3); POTASSIUM 4.5 mmol/L (3.5-5.1)
[2020-12-27 16:45] LABS: APTT 30.2 Seconds (25.0-31.3); INR 1.3; PROTIME 13.8 Seconds (9.20-11.50)
[2020-12-27 16:58] LABS: ALBUMIN 3.6 g/dL (3.4-5.0); CK-MB MASS 0.7 ng/mL (<0.5-3.6); MAGNESIUM 1.9 mg/dL (1.8-2.4); TOTAL BILIRUBIN 0.6 mg/dL (<0.1-1.0); TOTAL PROTEIN 7.1 g/dL (6.4-8.2)
[2020-12-27 18:12] VITALS: BP 150/69
[2020-12-27 18:40] VITALS: BP 122/63
[2020-12-27] MEDS ORDERED: NEURONTIN300 MG PO (19:37)
[2020-12-27 20:00] VITALS: BP 132/67
[2020-12-27 22:10] VITALS: BP 99/53
[2020-12-27 22:15] VITALS: BP 95/42
[2020-12-28 02:48] LABS: INR 1.3; PROTIME 13.5 Seconds (9.20-11.50)
[2020-12-28 04:00] VITALS: BP 97/56
[2020-12-28 07:09] LABS: HEMATOCRIT 33.2 % (37.0-47.0); HEMOGLOBIN 10.7 gm/dL (12.0-15.0); MCH 29.2 pg (26.0-34.0); MCHC 32.3 g/dL (28.0-37.0); MCV 90.3 fL (80.0-100.0); RBC 3.68 mil/uL (4.20-5.00); RDW-CV 14.9 % (10.5-14.5); WBC 8.9 thou/uL (4.0-11.0)
[2020-12-28 07:18] LABS: ANION GAP 6 mmol/L (7-16); BUN 19 mg/dL (7-18); CHLORIDE 105 mmol/L (98-107); CO2 27 mmol/L (21-32); CREATININE 0.8 mg/dL (0.6-1.3); GLUCOSE 111 mg/dL (70-99); PHOSPHORUS* 4.2 mg/dL (2.5-4.9); POTASSIUM 4.5 mmol/L (3.5-5.1); SODIUM 138 mmol/L (136-145)
[2020-12-28 07:19] LABS: SERUM ASSESSMENT Clear
[2020-12-28 07:51] LABS: CHOLESTEROL 139 mg/dL (<200); HDL CHOLESTEROL 64 mg/dL (>40); LDL CHOLESTEROL 63 mg/dL (<100); TC:HDL 2.2 Ratio (Not establshd); TRIGLYCERIDE 64 mg/dL (<150); VLDL 13 mg/dL (<40)
[2020-12-28 08:00] VITALS: BP 112/55
--- NOTE | 2020-12-28 11:14 | EKG ---
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 /EPI
--- NOTE | 2020-12-28 11:15 | EKG ---
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
[2020-12-28 13:13] VITALS: BP 103/56
--- NOTE | 2020-12-28 13:33 | 2DMMODE ---
[place] [address] 2 D/M-MODE ECHOCARDIOGRAM Name: NILOMICHAEL E Room: [address] IN [place].#: [id number] Admission: 12/27/20 Attend Phys: Jaime Velazquez Discharge: Date of : 40 Date of Service: 12/28/20 1333 Report #: [id number] THIS REPORT FOR: cc: Jose Esparza,Jose Munson,Daniel Chong MD [facility] ~ APPROVED REPORT Study performed: 12/28/2020 10:00:03 EXAM: Comprehensive 2D, Doppler, and color-flow Echocardiogram Patient Location: In-Patient Room #: [facility][note 3] Status: routine BSA: 1.75 HR: 80 bpm BP: 97/56 mmHg Rhythm: NSR Other Information Study Quality: Good Indications Chest Pain 2D Dimensions IVSd: 8.11 (7-11mm) LVOT Diam: 21.70 (18-24mm) LVDd: 41.77 mm PWd: 10.14 (7-11mm) Ascending Ao: 28.50 (22-36mm) LVDs: 22.85 (25-40mm) Aortic Root: 30.53 mm Volumes Left Atrial Volume (Systole) LA ESV Index: 28.90 mL/m2 Aortic Valve AoV Peak Andres.: 1.27 m/s AO Peak Gr.: 6.46 mmHg LVOT Max P.68 mmHg AO Mean Gr.: 3.48 mmHg LVOT Mean P.15 mmHg LVOT Max V: 1.08 m/s AO V2 VTI: 25.75 cm LVOT Mean V: 0.67 m/s MARIA TERESA (VTI): 3.37 cm2 LVOT V1 VTI: 23.45 [place] [address] 2 D/M-MODE ECHOCARDIOGRAM Name: MICHAEL CORCORAN Room: [address] IN [facility]#: [id number] Admission: 12/27/20 Attend Phys: Jaime Velazquez Discharge: Date of : 40 Date of Service: 12/28/20 1333 Report #: [id number] Mitral Valve E/A Ratio: 0.98 MV Decel. Time: 288.00 ms MV E Max Andres.: 0.65 m/s MV PHT: 83.52 ms MVA (PHT): 2.63 cm2 TDI E/Lateral E': 5.91 E/Medial E': 7.22 Medial E' Andres.: 0.09 m/s Lateral E' Andres.: 0.11 m/s Pulmonary Valve PV Peak Andres.: 0.81 m/s PV Peak Gr.: 2.60 mmHg Tricuspid Valve RAP Estimate: 5.00 mmHg TR Peak Gr.: 32.02 mmHg RVSP: 37.00 mmHg PA Pressure: 37.00 mmHg Left Ventricle The left ventricle is normal size. There is normal LV segmental wall motion. There is normal left ventricular wall thickness. Left ventricular systolic function is normal. The left ventricular ejection fraction is within the normal range. LVEF is 60-65%. The left ventricular diastolic function is normal. Right Ventricle The right ventricle is normal size. The right ventricular systolic function is normal. Atria The left atrium size is normal. The right atrium size is normal. Aortic Valve The aortic valve is normal in structure. No aortic regurgitation is present. There is no aortic valvular stenosis. Mitral Valve The mitral valve is normal in structure. trace mitral regurgitation. No evidence of mitral valve stenosis. Tricuspid Valve The tricuspid valve is normal in structure. Mild tricuspid regurgitation. estimated pa pressure 45 [place] [address] 2 D/M-MODE ECHOCARDIOGRAM Name: MICHAEL CORCORAN Room: [address] IN [facility]#: [id number] Admission: 12/27/20 Attend Phys: Jaime Velazquez Discharge: Date of : 40 Date of Service: 12/28/20 1333 Report #: [id number] Pulmonic Valve The pulmonary valve is normal in structure. There is no pulmonic valvular regurgitation. Great Vessels The aortic root is normal in size. IVC is normal in size and collapses >50% with inspiration. Pericardium There is no pericardial effusion. <Conclusion> LVEF is 60-65%. Mild tricuspid regurgitation. estimated pa pressure 45 mm Hg <ELECTRONICALLY SIGNED> By: Daniel Sabillon MD, [facility] 12/28/20 1333 1333 1333 Daniel Sabillon MD, FAC /INF
--- NOTE | 2020-12-28 14:57 | CON ---
[address] [address] CONSULTATION Name: MICHAEL CORCORAN Room: [address] IN M.Mirela.#: [id number] Admission: 12/27/20 Attend Phys: Milan Monk Discharge: Date of : 40 Report #: [id number] THIS REPORT FOR: cc: Jose Esparza,Daniel Yung MD [facility] ~ DATE OF SERVICE: 12/28/2020 CARDIOLOGY CONSULTATION HISTORY OF PRESENT ILLNESS: The patient is an 80-year-old white female who I was asked to see in the hospital today after she complained of chest pain. The patient has a long and extensive past medical history. She apparently had a stress test years ago. She has no history of coronary artery disease. She had a heart catheterization years ago by Dr. Turner that showed only minimal coronary plaque. She has a history of atrial fibrillation, but never required cardioversion. She has had a previous stroke and is followed by neurologist at [facility] and has had a carotid Doppler study in the past. She last saw my partner, Dr. Hopkins last June when she was doing well. She apparently recently fell down some steps when she lost her balance. She was noted to have an abnormal pancreas and apparently had pancreatic biopsy at [facility] 3 weeks ago. There was no cancer noted. She was doing well until 2 days ago, she felt a discomfort in her chest, went up into her throat. It lasted for a whole day. She felt somewhat short of breath and diaphoretic. She took some nitroglycerin which seemed to help. Her finally drove her to the Emergency Room at [facility] yesterday. She was transferred to [place] for further evaluation and treatment. She denied the pain being related to coughing. She has had no blood in her stool. The pain was not related to food. She denied trauma to her chest. Denied any rash. She denied exertional dyspnea, palpitations, or recent loss of consciousness. PAST MEDICAL HISTORY: She has had knee surgery, cholecystectomy, hemorrhoid surgery. She has a history of hyperlipidemia and diabetes. No history of hypertension. CURRENT MEDICATIONS: Include Lipitor, Pepcid, Neurontin, Synthroid, metformin, warfarin ALLERGIES: SHE HAS PREVIOUS INTOLERANCE TO PENICILLIN AND SULFA DRUGS. FAMILY HISTORY: Negative for heart disease. SOCIAL HISTORY: She is . She and her live in [place], [place]. Quit smoking years ago[place] [address] CONSULTATION Name: MICHAEL CORCORAN Room: [address] IN [facility]#: [id number] Admission: 12/27/20 Attend Phys: Milan Monk Discharge: Date of : 40 Report #: [id number] REVIEW OF SYSTEMS: She apparently had a previous stroke affecting her arms. She is followed by Neurology. She has been told she had lupus in the past. No liver disease, no kidney disease, no cancer. No psychiatric illness. No chronic skin condition. PHYSICAL EXAMINATION: GENERAL: Revealed an elderly, frail-appearing female, lying in bed. She appeared in no distress. VITAL SIGNS: Blood pressure was 120/60, pulse is 80, she is afebrile. HEENT: She was anicteric. Conjunctivae pink. Mucous membranes are moist. NECK: Veins nondistended. No carotid bruits. Neck supple. CHEST: Clear to auscultation. CARDIOVASCULAR: Regular rate and rhythm, no murmur or rub. ABDOMEN: Soft. EXTREMITIES: Had no edema. Posterior tibial pulse 2+ bilaterally. SKIN: Cool and dry. NEUROLOGIC: Nonfocal. RADIOLOGICAL DATA: Her ECG showed a sinus rhythm, there was no significant ST or T-wave change. Her workup, she actually had a nuclear stress test in 02/2020 here at [place] that showed ejection fraction 66% with only apical thinning, but no reversible ischemia. She had an echocardiogram done in 02/2020 here at [facility] that showed ejection fraction of over 60% with no significant valvular abnormalities. The patient had a chest x-ray last night that showed scarring, otherwise unremarkable, normal heart size. She actually had a CT scan of the chest using a PE protocol that showed coronary artery calcification, fatty liver; no aortic dissection, no pulmonary embolus. LABORATORY WORK: Sodium 138, creatinine 0.8. Troponins all less than 0.06. Her white blood cell count 8.9, hemoglobin 10.7, it was actually 9.0 back in 2017. IMPRESSION AND RECOMMENDATIONS: 1. Chest pain. Atypical for angina. Suspect noncardiac. Nuclear stress test approximately year ago showed no ischemia. Recommend no further cardiac evaluation. Suspect gastrointestinal. 2. Hyperlipidemia. The patient is on a statin drug. 3. Diabetes. 4. Previous stroke. The [place] [address] CONSULTATION Name: MICHAEL CORCORAN Room: [address] IN ..#: [id number] Admission: 12/27/20 Attend Phys: Milan Monk Discharge: Date of : 40 Report #: [id number] 5. History of atrial fibrillation. The patient appears to be in sinus rhythm at this time. <ELECTRONICALLY SIGNED> By: Daniel Sabillon MD, FACC 12/28/20 1457 0828 [id number] Sabillon MD, FACC /nt
[2020-12-28 16:11] VITALS: BP 103/56
[2020-12-28 16:14] VITALS: BP 103/56
== END 2020-12-28 16:30 | disposition home or self-care (01) ==
LOC: M.ERS 16:04 → M.2W 16:30 → M.TBA-ER 16:30 → M.2W 18:20
PROVIDERS: Family Medicine; Internal Medicine Cardiovascular Disease; ADMIT Internal Medicine; ATTEND Internal Medicine
DX: R07.89 Other chest pain (principal); E11.9 Type 2 diabetes mellitus without complications; I48.91 Unspecified atrial fibrillation; E78.5 Hyperlipidemia, unspecified; I10 Essential (primary) hypertension; D68.62 Lupus anticoagulant syndrome; D68.61 Antiphospholipid syndrome; K21.9 Gastro-esophageal reflux disease without esophagitis; E04.9 Nontoxic goiter, unspecified; Z86.73 Personal history of transient ischemic attack (TIA), and cerebral infarction without residual deficits; Z79.01 Long term (current) use of anticoagulants; Z79.4 Long term (current) use of insulin; Z79.899 Other long term (current) drug therapy